=== PATIENT | female | born 1975 | race Caucasian/White ===

== ENCOUNTER 2017-03-26 17:53 | Emergency (ER) | payer BC, OTHER ==
[2017-03-26] MEDS ORDERED: Fentanyl 100 MCG/2 ML VIAL ONE (18:39)
--- NOTE | 2017-03-26 19:16 | RAD ---
LEFT KNEE FOUR VIEWS: 03/26/17 HISTORY: Injury to knee. There is no signs of fracture, dislocation or joint effusion. IMPRESSION: Negative left knee. POS: [facility]
--- NOTE | 2017-03-26 19:17 | RAD ---
LEFT ANKLE THREE VIEWS: 03/26/17 HISTORY: Ankle injury. There is a tiny bony density seen adjacent to the medial side of the talus. This could represent a small avulsion. No additional findings. IMPRESSION: Questionable tiny avulsion fracture from the medial side of the talus. This would be in the region o f the deltoid ligaments. I do not see definite soft tissue swelling in this region. Clinical correla tion is recommended. POS: [facility]
--- NOTE | 2017-03-26 19:19 | RAD ---
LEFT TIBIA AND FIBULA TWO VIEWS: 03/26/17 HISTORY: Fall with tib/fib pain. There is no definite signs of fracture. Tiny bony density adjacent to the tip of the medial malleolu s could potentially represent a tiny avulsion injury. This may be old. IMPRESSION: Tiny bony density adjacent to the tip of the medial malleolus as discussed above. POS: [facility]
== END 2017-03-26 20:00 | disposition home or self-care (01) ==
LOC: SCSER 17:53
DX: S92.152A Displaced avulsion fracture (chip fracture) of left talus, initial encounter for closed fracture (principal); W08.XXXA Fall from other furniture, initial encounter; Y92.009 Unspecified place in unspecified non-institutional (private) residence as the place of occurrence of the external cause
CPT/HCPCS: 96372; J3010

== ENCOUNTER 2019-03-05 08:58 | Outpatient (CLI) | payer BC ==
--- NOTE | 2019-03-05 09:53 | MMO ---
Bilateral MAMMO Bilat Screen [facility]. CLINICAL HISTORY: Patient is 43 years old and is seen for screening. The patient has the following family history of breast cancer: mother, at age 59 and paternal aunt, X2. The patient has no personal history of cancer. VIEWS: The views performed were: bilateral craniocaudal with tomosynthesis and bilateral mediolateral oblique with tomosynthesis. FILMS COMPARED: The present examination has been compared to prior imaging studies performed at [facility] on 04/30/2009, 10/19/2013 and 12/30/2016. This study has been interpreted with the assistance of computer-aided detection. MAMMOGRAM FINDINGS: There are scattered fibroglandular densities. There is a stable equal density, oval mass measuring 15 millimeters seen in the middle region of the right breast at 3 o'clock. There are no suspicious masses, suspicious calcifications, or new areas of architectural distortion. IMPRESSION: THERE IS NO MAMMOGRAPHIC EVIDENCE OF MALIGNANCY. A ROUTINE FOLLOW-UP MAMMOGRAM IN 1 YEAR IS RECOMMENDED. THE RESULTS OF THIS EXAM WERE SENT TO THE PATIENT. ACR BI-RADS Category 2 - Benign finding MAMMOGRAPHY NOTE: 1. A negative mammogram report should not delay a biopsy if a dominant of clinically suspicious mass is present. 2. Approximately 10% to 15% of breast cancers are not detected by mammography. 3. Adenosis and dense breasts may obscure an underlying neoplasm. Reported by: LIZZY ELY MD Electonically Signed: [id number]
== END 2019-03-05 08:59 | disposition home or self-care (01) ==
LOC: BICMAMMO 08:58
PROVIDERS: ATTEND Family Medicine
DX: Z12.31 Encounter for screening mammogram for malignant neoplasm of breast (principal); Z80.3 Family history of malignant neoplasm of breast
CPT/HCPCS: 77063; 77067

== ENCOUNTER 2021-07-27 11:17 | Outpatient (CLI) | payer BC | END 2021-07-27 11:18 | disposition home or self-care (01) | LOC: MRI 11:17 | PROVIDERS: ATTEND Family Medicine | DX: M54.50 Low back pain, unspecified (principal) | CPT/HCPCS: 72148 ==